=== PATIENT | male | born 1955 | race African-American/Black ===

== ENCOUNTER 2020-07-11 15:37 | Inpatient (IN) | payer MEDICARE, OTHER ==
[2020-07-11 18:36] VITALS: BMI 25.5
[2020-07-11] MEDS ORDERED: TRIMETHOBENZAMIDE HCL 200MG/2ML INJ IM ONE ×2 (19:42→19:52)
[2020-07-11] MEDS ORDERED: MENTHOL/PHENOL 1 EACH UD MM PRN (20:21)
[2020-07-11] MEDS ORDERED: chlordiazePOXIDE HCL 25 MG CAPSULE PO PRN (20:21)
[2020-07-11] MEDS ORDERED: BISMUTH SUBSALICYLATE 524 MG/30 ML UD PO PRN (20:21)
[2020-07-11] MEDS ORDERED: NICOTINE POLACRILEX 2 MG GUM BUC PRN (20:21)
[2020-07-11] MEDS ORDERED: ACETAMINOPHEN 325 MG TABLET (FP) PO PRN ×2 (20:21)
[2020-07-11] MEDS ORDERED: ONDANSETRON *ODT* 4 MG TABLET SL PRN (20:21)
[2020-07-11] MEDS ORDERED: MAGNESIUM CITRATE 300 ML BOTTLE PO PRN (20:21)
[2020-07-11] MEDS ORDERED: MAG HYDROX/AL HYDROX/SIMETH 30 ML UNIT-DOSE CUP PO PRN (20:21)
[2020-07-11] MEDS ORDERED: MAGNESIUM HYDROX 2400MG/30ML ORAL SUSPENSION 30 ML CUP PO PRN (20:21)
[2020-07-11] MEDS ORDERED: GABAPENTIN 300 MG CAPSULE PO SCH (22:00)
[2020-07-11] MEDS: chlordiazePOXIDE HCL 25 MG CAPSULE PO SCH (22:13)
[2020-07-11] MEDS: ATORVASTATIN CA 20 MG TABLET (FP) PO SCH (22:14)
[2020-07-11] MEDS: MELATONIN 5 MG TABLETS PO SCH (22:14)
[2020-07-11] MEDS: THIAMINE HCL 100 MG TABLET (FP) PO SCH (22:14)
[2020-07-11] MEDS: hydrOXYzine PAMOATE 25 MG CAPSULE (FP) PO SCH (22:14)
[2020-07-12] MEDS: chlordiazePOXIDE HCL 25 MG CAPSULE PO SCH ×4 (05:44→22:17)
[2020-07-12] MEDS: hydrOXYzine PAMOATE 25 MG CAPSULE (FP) PO SCH ×5 (05:44→22:35)
[2020-07-12] MEDS ORDERED: MELATONIN 5 MG TABLETS PO SCH (10:00)
[2020-07-12] MEDS ORDERED: MULTIVITAMINS (DAILY MVI) TABLET (FP) PO SCH (10:00)
[2020-07-12] MEDS ORDERED: FOLIC ACID 1 MG TABLET (FP) PO SCH (10:00)
[2020-07-12] MEDS ORDERED: VITAMIN B1 PO SCH (10:00)
[2020-07-12 10:35] LABS: HEMOGLOBIN 10.4 GM/dL (11.7-16.9); MCH 30.4 pg (25.7-33.7); MCHC 33.6 g/dl (32.0-35.9); MEAN CELL VOLUME 90.6 fl (80-96); MEAN PLT VOLUME 7.7 fl (7.5-11.1); PLATELET COUNT 183 K/MM3 (134-434); RBC 3.42 M/mm3 (4.00-5.60); RDW 17.2 % (11.9-15.9); WHITE BLOOD COUNT 2.2 K/mm3 (4.0-10.0)
[2020-07-12 10:41] LABS: CALCIUM 8.8 mg/dL (8.5-10.1)
[2020-07-12] MEDS: METHOCARBAMOL 500 MG TABLET PO PRN (10:41)
[2020-07-12] MEDS: ALLOPURINOL 100 MG TABLET (FP) PO SCH (10:41)
[2020-07-12] MEDS: ASPIRIN 81 MG CHEWABLE TABLETS PO SCH (10:41)
[2020-07-12] MEDS: PRENATAL VITAMINS W/ FOLIC ACID TABLET (FP) PO SCH (10:41)
[2020-07-12 10:42] LABS: ALBUMIN 3.3 g/dl (3.4-5.0); BLOOD UREA NITROGEN 8.4 mg/dL (7-18)
[2020-07-12] MEDS: CYANOCOBALAMIN 1,000 MCG TABLET (FP) PO SCH (10:43)
[2020-07-12 10:45] LABS: CREATININE 0.8 mg/dL (0.55-1.3)
[2020-07-12 10:46] LABS: BILIRUBIN,TOTAL 1.6 mg/dL (0.2-1); TOT PROT 6.8 g/dl (6.4-8.2)
[2020-07-12] MEDS: IBUPROFEN 400 MG TABLET (FP) PO PRN (17:52)
[2020-07-12] MEDS: ATORVASTATIN CA 20 MG TABLET (FP) PO SCH (22:17)
[2020-07-12] MEDS: GABAPENTIN 300 MG CAPSULE PO SCH (22:17)
[2020-07-12] MEDS: THIAMINE HCL 100 MG TABLET (FP) PO SCH (22:17)
[2020-07-12] MEDS: MELATONIN 5 MG TABLETS PO SCH (22:18)
[2020-07-13] MEDS: hydrOXYzine PAMOATE 25 MG CAPSULE (FP) PO SCH ×5 (05:47→22:28)
[2020-07-13] MEDS: chlordiazePOXIDE HCL 25 MG CAPSULE PO SCH ×4 (05:47→22:18)
[2020-07-13] MEDS: PRENATAL VITAMINS W/ FOLIC ACID TABLET (FP) PO SCH (10:04)
[2020-07-13] MEDS: TAMSULOSIN HCL 0.4 MG CAP PO SCH (10:04)
[2020-07-13] MEDS: ASPIRIN 81 MG CHEWABLE TABLETS PO SCH (10:04)
[2020-07-13] MEDS: ALLOPURINOL 100 MG TABLET (FP) PO SCH (10:05)
[2020-07-13] MEDS: PANTOPRAZOLE 20 MG TABLET PO SCH (10:05)
[2020-07-13] MEDS: CYANOCOBALAMIN 1,000 MCG TABLET (FP) PO SCH (10:05)
[2020-07-13] MEDS: metoPROLOL SUCCINATE 25 MG TAB.SR.24H (FP) PO SCH (10:05)
[2020-07-13] MEDS: LIDOCAINE 5% TOPICAL PATCH TP SCH (11:02)
[2020-07-13] MEDS: IBUPROFEN 400 MG TABLET (FP) PO PRN (13:00)
[2020-07-13] MEDS: METHOCARBAMOL 500 MG TABLET PO PRN (13:00)
[2020-07-13] MEDS: THIAMINE HCL 100 MG TABLET (FP) PO SCH (22:17)
[2020-07-13] MEDS: ATORVASTATIN CA 20 MG TABLET (FP) PO SCH (22:17)
[2020-07-13] MEDS: GABAPENTIN 300 MG CAPSULE PO SCH (22:18)
[2020-07-13] MEDS: MELATONIN 5 MG TABLETS PO SCH (22:18)
[2020-07-13] MEDS: LIDOCAINE PATCH REMOVAL MC SCH (22:19)
[2020-07-14] MEDS ORDERED: chlordiazePOXIDE HCL 10 MG CAPSULE PO PRN
[2020-07-14] MEDS: hydrOXYzine PAMOATE 25 MG CAPSULE (FP) PO SCH ×5 (06:14→22:12)
[2020-07-14] MEDS: chlordiazePOXIDE HCL 10 MG CAPSULE PO SCH ×2 (06:15→10:00)
[2020-07-14] MEDS: LIDOCAINE 5% TOPICAL PATCH TP SCH (09:59)
[2020-07-14] MEDS: PRENATAL VITAMINS W/ FOLIC ACID TABLET (FP) PO SCH (09:59)
[2020-07-14] MEDS: metoPROLOL SUCCINATE 25 MG TAB.SR.24H (FP) PO SCH (09:59)
[2020-07-14] MEDS: PANTOPRAZOLE 20 MG TABLET PO SCH (10:00)
[2020-07-14] MEDS: ASPIRIN 81 MG CHEWABLE TABLETS PO SCH (10:00)
[2020-07-14] MEDS: ALLOPURINOL 100 MG TABLET (FP) PO SCH (10:00)
[2020-07-14] MEDS: CYANOCOBALAMIN 1,000 MCG TABLET (FP) PO SCH (10:00)
[2020-07-14] MEDS: TAMSULOSIN HCL 0.4 MG CAP PO SCH (10:00)
[2020-07-14 10:12] LABS: SARS-CoV-2 NAA Not Detected (Not Detected)
[2020-07-14] MEDS: IBUPROFEN 400 MG TABLET (FP) PO PRN (13:04)
[2020-07-14] MEDS: METHOCARBAMOL 500 MG TABLET PO PRN ×2 (13:04→22:12)
[2020-07-14] MEDS ORDERED: LORazepam 0.5 MG TABLET PO PRN (13:45)
[2020-07-14 13:52] LABS: ALBUMIN 3.4 g/dl (3.4-5.0); BLOOD UREA NITROGEN 11.6 mg/dL (7-18); CALCIUM 9.1 mg/dL (8.5-10.1)
[2020-07-14 13:53] LABS: TOT PROT 7.1 g/dl (6.4-8.2)
[2020-07-14 13:54] LABS: BASO % 0.8 % (0-2.0); EOS % 8.3 % (0-4.5); HEMOGLOBIN 10.9 GM/dL (11.7-16.9); LYMPH % 24.6 % (8-40); MCH 30.7 pg (25.7-33.7); MCHC 33.1 g/dl (32.0-35.9); MEAN CELL VOLUME 92.7 fl (80-96); MEAN PLT VOLUME 7.8 fl (7.5-11.1); MONO % 7.8 % (3.8-10.2); NEUT % 58.5 % (42.8-82.8); PLATELET COUNT 142 K/MM3 (134-434); RBC 3.56 M/mm3 (4.00-5.60); RDW 17.1 % (11.9-15.9); WHITE BLOOD COUNT 2.3 K/mm3 (4.0-10.0)
[2020-07-14 13:55] LABS: CREATININE 0.8 mg/dL (0.55-1.3)
[2020-07-14] MEDS: LORazepam 1 MG TABLET PO SCH ×2 (18:05→22:12)
[2020-07-14] MEDS: THIAMINE HCL 100 MG TABLET (FP) PO SCH (22:12)
[2020-07-14] MEDS: ATORVASTATIN CA 20 MG TABLET (FP) PO SCH (22:12)
[2020-07-14] MEDS: GABAPENTIN 300 MG CAPSULE PO SCH (22:12)
[2020-07-14] MEDS: LIDOCAINE PATCH REMOVAL MC SCH (22:13)
[2020-07-14] MEDS: MELATONIN 5 MG TABLETS PO SCH (22:14)
[2020-07-15] MEDS ORDERED: chlordiazePOXIDE HCL 10 MG CAPSULE PO SCH (05:00)
[2020-07-15] MEDS: LORazepam 0.5 MG TABLET PO SCH ×4 (06:25→22:09)
[2020-07-15] MEDS: hydrOXYzine PAMOATE 25 MG CAPSULE (FP) PO SCH ×5 (06:25→22:09)
[2020-07-15] MEDS: ALLOPURINOL 100 MG TABLET (FP) PO SCH (10:09)
[2020-07-15] MEDS: CYANOCOBALAMIN 1,000 MCG TABLET (FP) PO SCH (10:09)
[2020-07-15] MEDS: PRENATAL VITAMINS W/ FOLIC ACID TABLET (FP) PO SCH (10:09)
[2020-07-15] MEDS: ASPIRIN 81 MG CHEWABLE TABLETS PO SCH (10:09)
[2020-07-15] MEDS: TAMSULOSIN HCL 0.4 MG CAP PO SCH (10:09)
[2020-07-15] MEDS: metoPROLOL SUCCINATE 25 MG TAB.SR.24H (FP) PO SCH (10:09)
[2020-07-15] MEDS: LIDOCAINE 5% TOPICAL PATCH TP SCH (10:09)
[2020-07-15] MEDS: PANTOPRAZOLE 20 MG TABLET PO SCH (10:10)
[2020-07-15] MEDS ORDERED: ESCITALOPRAM OXALATE 20 MG TABLET PO ONE (13:00)
[2020-07-15] MEDS: GABAPENTIN 300 MG CAPSULE PO SCH (22:08)
[2020-07-15] MEDS: ATORVASTATIN CA 20 MG TABLET (FP) PO SCH (22:08)
[2020-07-15] MEDS: THIAMINE HCL 100 MG TABLET (FP) PO SCH (22:08)
[2020-07-15] MEDS: MELATONIN 5 MG TABLETS PO SCH (22:09)
[2020-07-15] MEDS: LIDOCAINE PATCH REMOVAL MC SCH (22:09)
[2020-07-16] MEDS ORDERED: LORazepam 0.5 MG TABLET PO ONE (05:00)
[2020-07-16] MEDS ORDERED: chlordiazePOXIDE HCL 10 MG CAPSULE PO ONE (05:00)
[2020-07-16] MEDS: hydrOXYzine PAMOATE 25 MG CAPSULE (FP) PO SCH ×2 (06:04→10:04)
[2020-07-16 09:13] VITALS: BP 114/69; PULSE 92; TEMP 97.3
[2020-07-16] MEDS: metoPROLOL SUCCINATE 25 MG TAB.SR.24H (FP) PO SCH (09:34)
[2020-07-16] MEDS: ALLOPURINOL 100 MG TABLET (FP) PO SCH (09:34)
[2020-07-16] MEDS: PRENATAL VITAMINS W/ FOLIC ACID TABLET (FP) PO SCH (09:35)
[2020-07-16] MEDS: TAMSULOSIN HCL 0.4 MG CAP PO SCH (09:35)
[2020-07-16] MEDS: ASPIRIN 81 MG CHEWABLE TABLETS PO SCH (09:35)
[2020-07-16] MEDS: CYANOCOBALAMIN 1,000 MCG TABLET (FP) PO SCH (09:35)
[2020-07-16] MEDS: PANTOPRAZOLE 20 MG TABLET PO SCH (09:35)
[2020-07-16] MEDS ORDERED: ESCITALOPRAM OXALATE 20 MG TABLET PO SCH (10:00)
[2020-07-16] MEDS: LIDOCAINE 5% TOPICAL PATCH TP SCH (10:04)
== END 2020-07-16 10:52 | disposition home or self-care (01) | DRG 897 ==
LOC: YASAS 15:37 → Y6N 19:51
PROVIDERS: ADMIT Allergy & Immunology; ATTEND Allergy & Immunology
PROC: HZ2ZZZZ Detoxification Services for Substance Abuse Treatment (ICD-10-PCS; principal; 2020-07-11)
DX: F10.230 Alcohol dependence with withdrawal, uncomplicated (principal); F19.24 Other psychoactive substance dependence with psychoactive substance-induced mood disorder; F43.21 Adjustment disorder with depressed mood; F32.9 Major depressive disorder, single episode, unspecified; D72.819 Decreased white blood cell count, unspecified; I25.10 Atherosclerotic heart disease of native coronary artery without angina pectoris; I10 Essential (primary) hypertension; I25.2 Old myocardial infarction; Z95.810 Presence of automatic (implantable) cardiac defibrillator; M10.9 Gout, unspecified; M25.551 Pain in right hip; R74.01 Elevation of levels of liver transaminase levels; R74.8 Abnormal levels of other serum enzymes; R29.6 Repeated falls; Z87.891 Personal history of nicotine dependence; Z98.84 Bariatric surgery status
CPT/HCPCS: 36415; 80053; 85025; 85027; 86780; C9803; U0003; U0005

== ENCOUNTER 2020-08-10 14:13 | Inpatient (IN) | payer MEDICARE, OTHER ==
[2020-08-10 14:45] VITALS: BMI 25.5
[2020-08-10 15:38] LABS: BASO % 1.6 % (0-2.0); EOS % 5.2 % (0-4.5); HEMATOCRIT 33.3 % (35.4-49); HEMOGLOBIN 11.1 GM/dL (11.7-16.9); LYMPH % 22.6 % (8-40); MCHC 33.5 g/dl (32.0-35.9); MEAN CELL VOLUME 92.5 fl (80-96); MEAN PLT VOLUME 7.5 fl (7.5-11.1); MONO % 15.9 % (3.8-10.2); NEUT % 54.7 % (42.8-82.8); PLATELET COUNT 97 K/MM3 (134-434); RDW 16.7 % (11.9-15.9)
[2020-08-10 15:45] LABS: INR 0.89 (0.83-1.09); PROTHROMBIN TIME (PATIENT) 10.8 SEC (9.7-13.0)
[2020-08-10 15:48] LABS: ACTIVATED PTT 29.8 SECONDS (25.2-36.5)
[2020-08-10 16:00] LABS: BLOOD UREA NITROGEN 10.6 mg/dL (7-18); CALCIUM 7.8 mg/dL (8.5-10.1)
[2020-08-10 16:01] LABS: ALBUMIN 3.6 g/dl (3.4-5.0)
[2020-08-10 16:04] LABS: CREATININE 0.8 mg/dL (0.55-1.3)
[2020-08-10 16:05] LABS: TOT PROT 7.1 g/dl (6.4-8.2)
[2020-08-10] MEDS ORDERED: oxyCODONE HCL 5 MG TABLET ONE (18:26)
[2020-08-10] MEDS ORDERED: oxyCODONE HCL 5 MG TABLET PO ONE (18:29)
[2020-08-10] MEDS ORDERED: chlordiazePOXIDE HCL 25 MG CAPSULE PO PRN (22:11)
[2020-08-10] MEDS: chlordiazePOXIDE HCL 25 MG CAPSULE PO SCH (23:30)
[2020-08-11] MEDS: chlordiazePOXIDE HCL 25 MG CAPSULE PO SCH (05:47)
[2020-08-11] MEDS ORDERED: HEPARIN NA (PORCINE) 5,000 UNITS/ML 1ML VIAL SQ SCH (06:00)
[2020-08-11 08:15] LABS: BASO % 0.7 % (0-2.0); EOS % 1.6 % (0-4.5); HEMATOCRIT 30.2 % (35.4-49); HEMOGLOBIN 10.2 GM/dL (11.7-16.9); LYMPH % 10.6 % (8-40); MCH 31.5 pg (25.7-33.7); MCHC 33.8 g/dl (32.0-35.9); MEAN CELL VOLUME 93.2 fl (80-96); MEAN PLT VOLUME 8.5 fl (7.5-11.1); MONO % 13.1 % (3.8-10.2); PLATELET COUNT 90 K/MM3 (134-434); RBC 3.24 M/mm3 (4.00-5.60); RDW 16.4 % (11.9-15.9); WHITE BLOOD COUNT 2.5 K/mm3 (4.0-10.0)
[2020-08-11 08:21] LABS: CALCIUM 8.1 mg/dL (8.5-10.1)
[2020-08-11 08:22] LABS: ALBUMIN 3.4 g/dl (3.4-5.0); BLOOD UREA NITROGEN 9.6 mg/dL (7-18)
[2020-08-11 08:25] LABS: CREATININE 0.6 mg/dL (0.55-1.3)
[2020-08-11 08:27] LABS: BILIRUBIN,TOTAL 1.6 mg/dL (0.2-1); TOT PROT 6.5 g/dl (6.4-8.2)
[2020-08-11] MEDS: FOLIC ACID 1 MG TABLET (FP) PO SCH (09:18)
[2020-08-11] MEDS: LORazepam 1 MG TABLET PO PRN (09:19)
[2020-08-11] MEDS: metoPROLOL SUCCINATE 25 MG TAB.SR.24H (FP) PO SCH (09:19)
[2020-08-11] MEDS: THIAMINE HCL 100 MG TABLET (FP) PO SCH (09:19)
[2020-08-11] MEDS: PANTOPRAZOLE 40 MG TABLET PO SCH (09:21)
[2020-08-11] MEDS: MULTIVITAMINS (DAILY MVI) TABLET (FP) PO SCH (09:21)
[2020-08-11] MEDS ORDERED: ESCITALOPRAM OXALATE 20 MG TABLET PO SCH (10:00)
[2020-08-11] MEDS: LORazepam 1 MG TABLET PO SCH ×3 (12:00→22:49)
[2020-08-11] MEDS: oxyCODONE HCL 5 MG TABLET PO PRN ×2 (15:23→22:50)
[2020-08-11] MEDS ORDERED: ATORVASTATIN CA 20 MG TABLET (FP) PO SCH (22:00)
[2020-08-12] MEDS ORDERED: chlordiazePOXIDE HCL 25 MG CAPSULE PO SCH (05:00)
[2020-08-12] MEDS: oxyCODONE HCL 5 MG TABLET PO PRN ×2 (05:13→20:27)
[2020-08-12] MEDS: LORazepam 1 MG TABLET PO SCH ×4 (05:15→22:27)
[2020-08-12] MEDS: THIAMINE HCL 100 MG TABLET (FP) PO SCH (10:08)
[2020-08-12] MEDS: FOLIC ACID 1 MG TABLET (FP) PO SCH (10:08)
[2020-08-12] MEDS: PANTOPRAZOLE 40 MG TABLET PO SCH (10:09)
[2020-08-12] MEDS: MULTIVITAMINS (DAILY MVI) TABLET (FP) PO SCH (10:09)
[2020-08-12] MEDS: metoPROLOL SUCCINATE 25 MG TAB.SR.24H (FP) PO SCH (10:09)
[2020-08-12] MEDS: TAMSULOSIN HCL 0.4 MG CAP PO SCH (15:05)
[2020-08-12 21:54] VITALS: TEMP 98.8
[2020-08-12] MEDS ORDERED: TETRAHYDROZOLINE HCL EYE DROPS OU PRN (22:25)
[2020-08-13] MEDS ORDERED: chlordiazePOXIDE HCL 10 MG CAPSULE PO PRN
[2020-08-13] MEDS: oxyCODONE HCL 5 MG TABLET PO PRN (03:18)
[2020-08-13] MEDS ORDERED: LORazepam 1 MG TABLET PO SCH (05:00)
[2020-08-13] MEDS ORDERED: chlordiazePOXIDE HCL 10 MG CAPSULE PO SCH (05:00)
[2020-08-13 05:24] VITALS: PULSE 90
[2020-08-13 08:07] LABS: EOS % 3.5 % (0-4.5); HEMATOCRIT 30.4 % (35.4-49); HEMOGLOBIN 10.4 GM/dL (11.7-16.9); LYMPH % 17.3 % (8-40); MCH 31.9 pg (25.7-33.7); MCHC 34.1 g/dl (32.0-35.9); MEAN CELL VOLUME 93.6 fl (80-96); MEAN PLT VOLUME 8.8 fl (7.5-11.1); MONO % 16.1 % (3.8-10.2); NEUT % 62.1 % (42.8-82.8); PLATELET COUNT 122 K/MM3 (134-434); RBC 3.25 M/mm3 (4.00-5.60); RDW 16.2 % (11.9-15.9)
[2020-08-13 08:30] LABS: BLOOD UREA NITROGEN 12.6 mg/dL (7-18); CALCIUM 8.3 mg/dL (8.5-10.1)
[2020-08-13 08:31] VITALS: BP 138/75
[2020-08-13 08:31] LABS: ALBUMIN 3.2 g/dl (3.4-5.0); MAGNESIUM 1.3 mg/dL (1.8-2.4)
[2020-08-13 08:33] LABS: CREATININE 0.8 mg/dL (0.55-1.3); PHOSPHOROUS 3.5 mg/dL (2.5-4.9)
[2020-08-13 08:35] LABS: BILIRUBIN,TOTAL 1.2 mg/dL (0.2-1); TOT PROT 6.5 g/dl (6.4-8.2)
[2020-08-13] MEDS ORDERED: MAGNESIUM 2GM/50ML STERILE WATER IVPB IVPB STA (08:43)
[2020-08-13] MEDS ORDERED: POTASSIUM CHLORIDE ORAL LIQUID 20 MEQ/15 ML PO STA (08:43)
[2020-08-13] MEDS ORDERED: ALLOPURINOL 100 MG TABLET (FP) PO SCH (10:00)
[2020-08-13] MEDS: TAMSULOSIN HCL 0.4 MG CAP PO SCH (10:41)
[2020-08-13] MEDS: FOLIC ACID 1 MG TABLET (FP) PO SCH (10:42)
[2020-08-13] MEDS: PANTOPRAZOLE 40 MG TABLET PO SCH (10:43)
[2020-08-13] MEDS ORDERED: MAGNESIUM OXIDE 400 MG TABLET (FP) PO STA (10:44)
[2020-08-13] MEDS: THIAMINE HCL 100 MG TABLET (FP) PO SCH (10:44)
[2020-08-13] MEDS: metoPROLOL SUCCINATE 25 MG TAB.SR.24H (FP) PO SCH (10:44)
[2020-08-13] MEDS: MULTIVITAMINS (DAILY MVI) TABLET (FP) PO SCH (10:45)
[2020-08-13] MEDS: LORazepam 1 MG TABLET PO PRN (10:55)
[2020-08-14] MEDS ORDERED: LORazepam 0.5 MG TABLET PO PRN
[2020-08-14] MEDS ORDERED: LORazepam 0.5 MG TABLET PO SCH (05:00)
[2020-08-14] MEDS ORDERED: chlordiazePOXIDE HCL 10 MG CAPSULE PO SCH (05:00)
[2020-08-15] MEDS ORDERED: chlordiazePOXIDE HCL 10 MG CAPSULE PO ONE (05:00)
[2020-08-15] MEDS ORDERED: LORazepam 0.5 MG TABLET PO ONE (05:00)
== END 2020-08-13 13:21 | disposition home or self-care (01) | DRG 897 ==
LOC: JER 14:13 → JERBED 18:57 → J4W 21:48
PROVIDERS: ATTEND Internal Medicine
DX: F10.230 Alcohol dependence with withdrawal, uncomplicated (principal); I50.22 Chronic systolic (congestive) heart failure; I25.2 Old myocardial infarction; K70.10 Alcoholic hepatitis without ascites; I11.0 Hypertensive heart disease with heart failure; F10.220 Alcohol dependence with intoxication, uncomplicated; D69.6 Thrombocytopenia, unspecified; F32.9 Major depressive disorder, single episode, unspecified; M10.9 Gout, unspecified; N40.0 Benign prostatic hyperplasia without lower urinary tract symptoms; R74.01 Elevation of levels of liver transaminase levels; Z86.711 Personal history of pulmonary embolism; K21.9 Gastro-esophageal reflux disease without esophagitis; E78.5 Hyperlipidemia, unspecified; R07.89 Other chest pain
CPT/HCPCS: 36415; 71045-TC-FY; 71275-TC; 80053; 80307; 82550; 82553; 83735; 84100; 84484; 85025; 85610; 85730; 93005; 93010; 99285-25; C9803; J1644; Q9967; U0003; U0005